=== PATIENT | female | born 1965 | race Caucasian/White ===

== ENCOUNTER 2016-09-27 19:56 | Emergency (ER) | payer OTHER ==
[~2016-09-27] VITALS: Ht 162.6 cm; Wt 82.0 kg
[~2016-09-27 19:56] MED LIST: ARTHRITIS PAIN650 M4 PO; AUGMENTIN500 MG PO; MULTIVITAMIN1 EAC1 PO
[2016-09-27 20:33] LABS: HEMATOCRIT 38.8 % (36.0-46.0); MCH 29.7 PG (29.0-34.0); MCHC 33.2 G/DL (30.0-36.0); MCV 89.2 FL (83-99); MEAN PLAT.VOLUME 9.9 uM^3 (9.5-12.4); PLATELET COUNT 299 K/uL (156-360); RBC DIS.WIDTH-CV 13.2 % (11.8-14.6); RBC DIS.WIDTH-SD 43.2 % (39-53); RED BLOOD COUNT 4.35 M/uL (3.80-5.20); WHITE BLOOD COUNT 7.6 K/uL (4.1-10.2)
[2016-09-27 20:36] LABS: ADD MIUA? NO; BILIRUBIN NEGATIVE; BLOOD NEGATIVE; COLOR YELLOW ((YELLOW)); GLUCOSE (STRIP) NEGATIVE; KETONES NEGATIVE; LEUKOCYTES NEGATIVE; NITRITE NEGATIVE; PROTEIN (STRIP) NEGATIVE; SPECIFIC GRAVITY 1.009 (1.000-1.030); UCUL ADDED? NO; UROBILINOGEN 0.2 MG/DL (0.2-1.0)
[2016-09-27 20:41] LABS: CHLORIDE 107 mEq/L (99-109); POTASSIUM 3.9 mEq/L (3.7-5.4); SODIUM 141 mEq/L (136-147)
[2016-09-27 20:44] LABS: GLUCOSE 106 mg/dL (70-99)
[2016-09-27 20:45] LABS: ANION GAP 9 MEQ/L (2-14)
[2016-09-27 20:46] LABS: TOTAL BILIRUBIN 0.3 mg/dL (0.0-1.0)
[2016-09-27 20:47] LABS: ALKALINE PHOSPHATASE 83 IU/L (3-129); GFR ESTIMATE (CALCULATED) > 59 mL/min/
[2016-09-27 20:48] LABS: UREA NITROGEN (BUN) 10 mg/dL (9-23)
[2016-09-27 22:20] LABS: LIPASE 17 U/L (1.0-51.0)
[2016-09-27] MEDS ORDERED: VALIUM5 MG PO (22:55)
[2016-09-27] MEDS ORDERED: PERCOCET 5/31 TABLET PO (22:55)
[2016-09-27 23:06] VITALS: BP 116/69
== END 2016-09-27 23:30 | disposition home or self-care (01) ==
LOC: EME 19:56
DX: S29.011A Strain of muscle and tendon of front wall of thorax, initial encounter (principal); X50.0XXA Overexertion from strenuous movement or load, initial encounter; Z96.651 Presence of right artificial knee joint; Z85.41 Personal history of malignant neoplasm of cervix uteri; Z88.6 Allergy status to analgesic agent; F17.200 Nicotine dependence, unspecified, uncomplicated
CPT/HCPCS: 71101; 80053; 81003; 83690; 84702; 85027; 99281; 99284

== ENCOUNTER 2016-10-16 23:32 | Emergency (ER) | payer OTHER ==
[~2016-10-16] VITALS: Ht 162.6 cm; Wt 81.8 kg
[~2016-10-16 23:32] MED LIST changes: +PERCOCET 5/31 TABLET PO; +VALIUM5 MG PO
[2016-10-17 01:59] VITALS: BP 137/87
== END 2016-10-17 02:04 | disposition home or self-care (01) ==
LOC: EME 23:32
DX: M71.21 Synovial cyst of popliteal space [Baker], right knee (principal); Z96.651 Presence of right artificial knee joint; Z87.891 Personal history of nicotine dependence
CPT/HCPCS: 73564; 93971; 99281; 99284; J1885

== ENCOUNTER 2017-07-23 20:34 | Emergency (ER) | payer SELFPAY ==
[~2017-07-23] VITALS: Ht 162.6 cm; Wt 78.8 kg
[2017-07-23] MEDS ORDERED: VALIUM5 MG PO (21:37)
[2017-07-23] MEDS ORDERED: ULTRACET1 TABLET PO (21:37)
[2017-07-23] MEDS ORDERED: INDOCIN50 MG PO (21:37)
[2017-07-23] MEDS ORDERED: LIDODERM 5% P1 PATCH TD (21:37)
[2017-07-23 21:54] VITALS: BP 143/97
== END 2017-07-23 21:56 | disposition home or self-care (01) ==
LOC: EME 20:34 → EXP 20:34
DX: M50.10 Cervical disc disorder with radiculopathy, unspecified cervical region (principal); M62.838 Other muscle spasm; Z85.41 Personal history of malignant neoplasm of cervix uteri; Z96.651 Presence of right artificial knee joint; F17.200 Nicotine dependence, unspecified, uncomplicated
CPT/HCPCS: 99281; 99284